=== PATIENT | male | born 1960 | race Caucasian/White ===

== ENCOUNTER 2018-07-10 11:32 | Observation (INO) | payer OTHER ==
[~2018-07-10] VITALS: Ht 188 cm; Wt 160.1 kg
--- OUTSIDE RECORDS SUMMARY | 2018-07-10 11:34 | XMS REPORT | Summary of Care ---
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, initial encounter (Final) - 10/28/17 Acute kidney failure, unspecified (Final) - Contact with metalworking machines, initial encounter (Final) - Essential (primary) hypertension (Final) - Discharge Disposition: Home or Self Care Attending Physician: Armando Gan DO Admitting Physician: Armando Gan DO Vital Signs 1 2 3 Most recent to oldest [Reference Range]: 187.96 cm (10/18/17 9:19 PM) 187.96 cm (10/18/17 12:00 PM) Height 98 DegF (10/20/17 8:17 AM) 98 DegF (10/20/17 4:17 AM) 98.1 DegF (10/19/17 11:15 PM) Temperature Oral [96.4-99.1 DegF] 142/81 mmHg *HI* (10/20/17 8:17 AM) 145/84 mmHg *HI* (10/20/17 4:17 AM) 146/85 mmHg *HI* (10/19/17 11:15 PM) Blood Pressure [90-140/60-90 mmHg] 18 BRMIN (10/20/17 8:17 AM) 18 BRMIN (10/20/17 4:17 AM) 18 BRMIN (10/19/17 11:15 PM) Respiratory Rate [14-20 BRMIN] 82 bpm (10/20/17 8:17 AM) 85 bpm (10/20/17 4:17 AM) 81 bpm (10/19/17 11:15 PM) Peripheral Pulse Rate [60-100 bpm] 154.545 kg (10/18/17 9:19 PM) 154.545 kg (10/18/17 12:00 PM) Weight 43.74 m2 (10/18/17 9:19 PM) 43.74 m2 (10/18/17 12:00 PM) Body Mass Index Problem List No data available for this section Allergies, Adverse Reactions, Alerts Substance Reaction Severity Status morphine Active Medications acetaminophen (ANES) Route: IVPB, Drug form: INJ, ONCE, Stop date: 10/19/17 11:06:00 RETAIL PHARMACIST Start Date: 10/19/17 Stop Date: 10/19/17 Status: Completed acetaminophen 500 mg oral tablet 1,000 mg=2 tab, PO, Q6H, X 10 day, # 80 tab, 0 Refill(s), [place] [facility] [place] [id number] Start Date: 10/20/17 Stop Date: 10/30/17 Status: Completed acetaminophen-hydrocodone 325 mg-5 mg oral tablet 1 tab, Route: PO, Drug Form: TAB, Dosing Weight 154.545, kg, Q4H, PRN Pain Score 4-6, Start date: 10/18/17 14:44:00 RETAIL PHARMACIST, Duration: 30 day, Stop date: 11/17/17 1 4:43:00 CDT Notes: (Same as: [place] 325/5) Do not exceed 4gm/day of acetaminophen. Start Date: 10/18/17 Stop Date: 10/20/17 Status: Discontinued Ancef 2 gm, 20 mL, Route: IVPB, Drug form: SOLN, [id number], Dosing Weight 154.545, kg, St art date: 10/19/17 22:00:00 RETAIL PHARMACIST, Duration: 1 day, Stop date: 10/20/17 14:00:[address], ABX Indication: Surgical Prophylaxis Notes: (Same as Ancef) Start Date: 10/19/17 Stop Date: 10/20/17 Status: Completed Ancef + sterile water 30 mL 3 gm, Route: IVPB, Q8H, Dosing Weight 154.545, kg, Start date: 10/19/17 0:00:00 RETAIL PHARMACIST, Duration: 3 day, Stop date: 10/21/17 16:00:00 RETAIL PHARMACIST, ABX Indication: Open Wou nd Prophylaxis Notes: (Same As: Lisa Dumas) MEDICATION WASTE Product Size: 1000 mgP roduct Wasted: ___ mg Start Date: 10/19/17 Stop Date: 10/19/17 Status: Discontinued ANES fentaNYL 50 microgram, 1 mL, Route: IVP, Drug form: INJ, Q5Min, Dosing Weight 154.545, kg , PRN Pain Score 7-10, Priority: Routine, Start date: 10/19/17 12:31:00 RETAIL PHARMACIST, Dur ation: 2 doses or times, Stop date: 10/20/17 0:00:00 RETAIL PHARMACIST Notes: (Same as: Sublimaze) Preservative free. Start Date: 10/19/17 Stop Date: 10/19/17 Status: Discontinued ANES flumazenil 0.2 mg, 2 mL, Route: IVP, Drug form: INJ, PRN, Dosing Weight 154.545, kg, PRN Be nzodiazepine Reversal, Initial dose, Start date: 10/19/17 12:31:00 RETAIL PHARMACIST, Stop krista e: 10/20/17 0:00:00 RETAIL PHARMACIST Notes: (Same as: Romazicon) Start Date: 10/19/17 Stop Date: 10/19/17 Status: Discontinued ANES naloxone 0.4 mg, 1 mL, Route: IVP, Drug form: INJ, Q2MIN, Dosing Weight 154.545, kg, PRN Narcotic Reversal, Start date: 10/19/17 12:31:00 RETAIL PHARMACIST, Duration: 8 doses or times , Stop date: 10/20/17 0:00:00 RETAIL PHARMACIST Notes: Same as Narcan Start Date: 10/19/17 Stop Date: 10/19/17 Status: Discontinued ANES ondansetron 4 mg, 2 mL, Route: IVP, Drug form: INJ, ONCE, Dosing Weight 154.545, kg, PRN Isaías sea & Vomiting, Start date: 10/19/17 12:31:00 RETAIL PHARMACIST Notes: (Same as: Zofran) MEDICATION WASTE Product Size: 4 mgProduct Was heike: ___ mg Start Date: 10/19/17 Stop Date: 10/19/17 Status: Discontinued ANES oxyCODONE 10 mg, 2 tab, Route: PO, Drug form: TAB, Q4H, Dosing Weight 154.545, kg, PRN Jelani n Score 7-10, Start date: 10/19/17 12:31:00 RETAIL PHARMACIST, Stop date: 10/20/17 0:00:00 RETAIL PHARMACIST Notes: (Same as: Roxicodone) Start Date: 10/19/17 Stop Date: 10/19/17 Status: Discontinued ANES oxyCODONE 5 mg, 1 tab, Route: PO, Drug form: TAB, Q4H, Dosing Weight 154.545, kg, PRN Pain Score 4-6, Start date: 10/19/17 12:31:00 RETAIL PHARMACIST, Stop date: 10/20/17 0:00:00 RETAIL PHARMACIST Notes: (Same as: Roxicodone) Start Date: 10/19/17 Stop Date: 10/19/17 Status: Discontinued Aspirin Enteric Coated 81 mg oral delayed release tablet 81 mg=1 tab, PO, Daily Start Date: 10/19/17 Status: Ordered Benadryl 25 mg oral tablet 50 mg=2 tab, PO, Daily Start Date: 10/19/17 Status: Ordered ceFAZolin (ANES) Route: IV, Drug form: INJ, ONCE, Stop date: 10/19/17 10:56:00 RETAIL PHARMACIST Start Date: 10/19/17 Stop Date: 10/19/17 Status: Completed Dilaudid 0.5 mg, 0.25 mL, Route: IVP, Drug form: INJ, Q3H, Dosing Weight 154.545, kg, PRN Pain Score 7-10, Start date: 10/18/17 20:53:00 RETAIL PHARMACIST, Duration: 30 day, Stop date: 11/17/17 20:52:00 CDT Notes: Same as Dilaudid Start Date: 10/18/17 Stop Date: 10/20/17 Status: Discontinued Dilaudid 1 mg, Route: IVP, ONCE, Dosing Weight 154.545, kg, Priority: STAT, Start date: 0 10/18/17 14:59:00 RETAIL PHARMACIST, Stop date: 10/18/17 14:59:00 RETAIL PHARMACIST Start Date: 10/18/17 Stop Date: 10/18/17 Status: Completed docusate 100 mg, 1 cap, Route: PO, Drug form: CAP, BID, Dosing Weight 154.545, kg, Start date: 10/18/17 17:00:00 RETAIL PHARMACIST, Duration: 30 day, Stop date: 11/17/17 9:00:00 CDT Notes: (Same as: Colace) (Do Not Crush) Start Date: 10/18/17 Stop Date: 10/20/17 Status: Discontinued enoxaparin 40 mg, 0.4 mL, Route: SUB-Q, Drug form: INJ, [id number], Dosing Weight 154.545, kg , Consider for obese patients, Start date: 10/18/17 15:00:00 RETAIL PHARMACIST, Stop date: 3:00:00 CDT Notes: (Same as: Lovenox) Start Date: 10/18/17 Stop Date: 10/20/17 Status: Discontinued ePHEDrine (ANES) Route: IV, Drug form: INJ, ONCE, Stop date: 10/19/17 12:02:00 RETAIL PHARMACIST Start Date: 10/19/17 Stop Date: 10/19/17 Status: Completed famotidine (ANES) Route: IV, Drug form: INJ, ONCE, Stop date: 10/19/17 10:56:00 RETAIL PHARMACIST Start Date: 10/19/17 Stop Date: 10/19/17 Status: Completed fentaNYL 25 microgram, 0.5 mL, Route: IVP, Drug form: INJ, ONCE, Dosing Weight 154.545, k g, Priority: STAT, Start date: 10/18/17 14:10:00 RETAIL PHARMACIST, Stop date: 10/18/17 14:10: 00 RETAIL PHARMACIST Notes: (Same as: Sublimaze) Preservative free. Start Date: 10/18/17 Stop Date: 10/18/17 Status: Completed fentaNYL 25 microgram, Route: IVP, ONCE, Dosing Weight 154.545, kg, Priority: STAT, Start date: 10/18/17 12:16:00 RETAIL PHARMACIST, Stop date: 10/18/17 12:16:00 RETAIL PHARMACIST Start Date: 10/18/17 Stop Date: 10/18/17 Status: Completed fentaNYL 25 microgram, 0.5 mL, Route: IVP, Drug form: INJ, ONCE, Dosing Weight 154.545, k g, Priority: STAT, Start date: 10/18/17 12:52:00 RETAIL PHARMACIST, Stop date: 10/18/17 12:52: 00 RETAIL PHARMACIST Notes: (Same as: Sublimaze) Preservative free. Start Date: 10/18/17 Stop Date: 10/18/17 Status: Completed fentaNYL (ANES) Route: IV, Drug form: INJ, ONCE, Stop date: 10/19/17 11:01:00 RETAIL PHARMACIST Start Date: 10/19/17 Stop Date: 10/19/17 Status: Completed gabapentin 300 mg oral capsule 300 mg, 1 cap, Route: PO, Drug form: CAP, TID, Dosing Weight 154.545, kg, Start date: 10/18/17 17:00:00 RETAIL PHARMACIST, Duration: 30 day, Stop date: 11/17/17 13:00:00 CDT Notes: (Same as: Neurontin) Start Date: 10/18/17 Stop Date: 10/20/17 Status: Discontinued gabapentin 300 mg oral capsule 300 mg=1 cap, PO, TID, # 30 cap, 0 Refill(s), Pharmacy: [id number] Start Date: 10/20/17 Stop Date: 10/30/17 Status: Ordered Isolyte S PH 7.4 1,000 mL 1,000 mL, Rate: 100 ml/hr, Infuse over: 10 hr, Route: IV, Dosing Weight 154.545 kg, Total Volume: 1,000, Start date: 10/18/17 14:47:00 RETAIL PHARMACIST, Duration: 30 day, St op date: 11/17/17 14:46:00 CDT, 2.87, m2 Notes: (Same as: Isolyte S PH 7.4) Start Date: 10/18/17 Stop Date: 10/20/17 Status: Discontinued Lactated Ringers Injection IV (ANES) 1000 mL Route: IV, Total Volume: 1,000, Start date: 10/19/17 10:05:00 RETAIL PHARMACIST, Stop date: 11:05:00 RETAIL PHARMACIST Start Date: 10/19/17 Stop Date: 10/19/17 Status: Completed lidocaine (ANES) Route: IV, Drug form: INJ, ONCE, Stop date: 10/19/17 11:11:00 RETAIL PHARMACIST Start Date: 10/19/17 Stop Date: 10/19/17 Status: Completed midazolam (ANES) Route: IV, Drug form: SOLN, ONCE, Stop date: 10/19/17 11:01:00 RETAIL PHARMACIST Start Date: 10/19/17 Stop Date: 10/19/17 Status: Completed Motrin 600 mg, 1 tab, Route: PO, Drug form: TAB, ONCE, Dosing Weight 154.545, kg, Start date: 10/19/17 15:38:00 RETAIL PHARMACIST, Stop date: 10/19/17 15:38:00 RETAIL PHARMACIST Notes: (Same as: Motrin)"Do Not Crush" Take with food. Start Date: 10/19/17 Stop Date: 10/19/17 Status: Completed naproxen 250 mg, 1 tab, Route: PO, Drug form: TAB, ONCE, Dosing Weight 154.545, kg, Start date: 10/19/17 20:27:00 RETAIL PHARMACIST, Stop date: 10/19/17 20:27:00 RETAIL PHARMACIST Notes: (Same as: Naprosyn) Take with food. Start Date: 10/19/17 Stop Date: 10/19/17 Status: Completed ondansetron 4 mg, Route: IVP, Drug form: INJ, ONCE, Dosing Weight 154.545, kg, Priority: STA T, Start date: 10/18/17 12:15:00 RETAIL PHARMACIST, Stop date: 10/18/17 12:15:00 RETAIL PHARMACIST Start Date: 10/18/17 Stop Date: 10/18/17 Status: Completed ondansetron 4 mg, 2 mL, Route: IVP, Drug form: INJ, Q6H, Dosing Weight 154.545, kg, PRN Naus ea & Vomiting, Start date: 10/18/17 14:44:00 RETAIL PHARMACIST, Duration: 30 day, Stop date: 11/17/17 14:43:00 CDT Notes: (Same as: Tarik) MEDICATION WASTE Product Size: 4 mgProduct Was heike: ___ mg Start Date: 10/18/17 Stop Date: 10/20/17 Status: Discontinued ondansetron (ANES) Route: IV, Drug form: INJ, ONCE, Stop date: 10/19/17 10:56:00 RETAIL PHARMACIST Start Date: 10/19/17 Stop Date: 10/19/17 Status: Completed Prilosec 20 mg oral delayed release capsule 20 mg=1 cap, PO, Daily Start Date: 10/19/17 Status: Ordered propofol (ANES) Route: IV, Drug form: INJ, ONCE, Stop date: 10/19/17 11:06:00 RETAIL PHARMACIST Start Date: 10/19/17 Stop Date: 10/19/17 Status: Completed quinapril 20 mg oral tablet TK 1 T PO D Start Date: 10/19/17 Status: Ordered rocuronium (ANES) Route: IV, Drug form: INJ, ONCE, Stop date: 10/19/17 11:01:00 RETAIL PHARMACIST Start Date: 10/19/17 Stop Date: 10/19/17 Status: Completed senna 8.6 mg oral tablet 17.2 mg, 2 tab, Route: PO, Drug Form: TAB, Dosing Weight 154.545, kg, Daily, Sta rt date: 10/19/17 9:00:00 RETAIL PHARMACIST, Duration: 30 day, Stop date: 11/17/17 9:00:00 CDT Notes: (Same as: Senokot) Start Date: 10/19/17 Stop Date: 10/20/17 Status: Discontinued succinylcholine (ANES) Route: IV, Drug form: INJ, ONCE, Stop date: 10/19/17 11:01:00 RETAIL PHARMACIST Start Date: 10/19/17 Stop Date: 10/19/17 Status: Completed tramadol 50 mg oral tablet 50 mg=1 tab, PO, Q6H, PRN Pain, X 10 day, # 40 tab, 0 Refill(s) Start Date: 10/20/17 Stop Date: 10/30/17 Status: Completed Tylenol 1,000 mg, 2 tab, Route: PO, Drug form: TAB, Q6H, Dosing Weight 154.545, kg, Star t date: 10/20/17 12:00:00 RETAIL PHARMACIST, Duration: 30 day, Stop date: 11/19/17 6:00:00 CDT Notes: Max acetaminophen 4000 mg/day (4 gm/day). (Same as: Tylenol Extra Streng th) Start Date: 10/20/17 Stop Date: 10/20/17 Status: Discontinued Results BLOOD BANK RESULTS 1 2 3 Most recent to oldest [Reference Range]: B NEG *Unknown* (10/18/17 12:36 PM) ABO/Rh Negative (10/18/17 12:36 PM) Antibody Scrn ELECTROLYTES 1 2 3 Most recent to oldest [Reference Range]: 139 mEq/L (10/20/17 12:42 AM) 141 mEq/L (10/19/17 4:58 AM) 139 mEq/L (10/18/17 12:36 PM) Sodium Lvl [135-145 mEq/L] 3.9 mEq/L (10/20/17 12:42 AM) 3.8 mEq/L (10/19/17 4:58 AM) 4.1 mEq/L (10/18/17 12:36 PM) Potassium Lvl [3.5-5.1 mEq/L] 104 mEq/L (10/20/17 12:42 AM) 104 mEq/L (10/19/17 4:58 AM) 103 mEq/L (10/18/17 12:36 PM) Chloride Lvl [95-109 mEq/L] 26 mEq/L (10/20/17 12:42 AM) 26 mEq/L (10/19/17 4:58 AM) 25 mEq/L (10/18/17 12:36 PM) CO2 [24-32 mEq/L] 12.9 mEq/L (10/20/17 12:42 AM) 14.8 mEq/L (10/19/17 4:58 AM) 15.1 mEq/L (10/18/17 12:36 PM) AGAP [10.0-20.0 mEq/L] CHEM PANEL 1 2 3 Most recent to oldest [Reference Range]: 1.02 mg/dL (10/20/17 12:42 AM) 0.94 mg/dL 1 (10/19/17 4:58 AM) 1.44 mg/dL *HI* (10/18/17 12:36 PM) Creatinine Lvl [0.50-1.40 mg/dL] 83 mL/min/1.73m2 2 *NA* (10/20/17 12:42 AM) 91 mL/min/1.73m2 3 *NA* (10/19/17 4:58 AM) 55 mL/min/1.73m2 4 *NA* (10/18/17 12:36 PM) eGFR 10 mg/dL (10/20/17 12:42 AM) 16 mg/dL (10/19/17 4:58 AM) 18 mg/dL (10/18/17 12:36 PM) BUN [7-22 mg/dL] 132 mg/dL *HI* (10/20/17 12:42 AM) 108 mg/dL *HI* (10/19/17 4:58 AM) 120 mg/dL *HI* (10/18/17 12:36 PM) Glucose Lvl [70-99 mg/dL] 8.7 mg/dL (10/20/17 12:42 AM) 8.1 mg/dL *LOW* (10/19/17 4:58 AM) 9.0 mg/dL (10/18/17 12:36 PM) Calcium Lvl [8.5-10.5 mg/dL] 1Result Comment: rechecked Creat & Bun 2Result Comment: The eGFR is calculated using the CKD-EPI formula. In most young, healthy individuals the eGFR will be >90 mL/min/1.73m2. The eGFR declines with age. An eGFR of 60-89 may be normal in some populations, particularly the elderly, for whom the CKD-EPI formula has not been extensively validated. Use of the eGFR is not recommended in the following populations: Individuals with unstable creatinine concentrations, including patients and those with serious co-morbid conditions. Patients with extremes in muscle mass or diet. The data above are obtained from the National Kidney Disease Education Program ( NKDEP) which additionally recommends that when the eGFR is used in patients with extremes of body mass index for purposes of drug dosing, the eGFR should be mul tiplied by the estimated BMI. 3Result Comment: The eGFR is calculated using the CKD-EPI formula. In most young, healthy individuals the eGFR will be >90 mL/min/1.73m2. The eGFR declines with age. An eGFR of 60-89 may be normal in some populations, particularly the elderly, for whom the CKD-EPI formula has not been extensively validated. Use of the eGFR is not recommended in the following populations: Individuals with unstable creatinine concentrations, including patients and those with serious co-morbid conditions. Patients with extremes in muscle mass or diet. The data above are obtained from the National Kidney Disease Education Program ( NKDEP) which additionally recommends that when the eGFR is used in patients with extremes of body mass index for purposes of drug dosing, the eGFR should be mul tiplied by the estimated BMI. 4Result Comment: The eGFR is calculated using the CKD-EPI formula. In most young, healthy individuals the eGFR will be >90 mL/min/1.73m2. The eGFR declines with age. An eGFR of 60-89 may be normal in some populations, particularly the elderly, for whom the CKD-EPI formula has not been extensively validated. Use of the eGFR is not recommended in the following populations: Individuals with unstable creatinine concentrations, including patients and those with serious co-morbid conditions. Patients with extremes in muscle mass or diet. The data above are obtained from the National Kidney Disease Education Program ( NKDEP) which additionally recommends that when the eGFR is used in patients with extremes of body mass index for purposes of drug dosing, the eGFR should be mul tiplied by the estimated BMI. HEMATOLOGY 1 2 3 Most recent to oldest [Reference Range]: 11.7 K/CMM *HI* (10/20/17 12:42 AM) 9.0 K/CMM (10/19/17 4:58 AM) 8.3 K/CMM (10/18/17 12:36 PM) WBC [3.7-10.4 K/CMM] 4.64 M/CMM *LOW* (10/20/17 12:42 AM) 4.46 M/CMM *LOW* (10/19/17 4:58 AM) 5.04 M/CMM (10/18/17 12:36 PM) RBC [4.70-6.10 M/CMM] 14.9 g/dL (10/20/17 12:42 AM) 14.6 g/dL (10/19/17 4:58 AM) 16.1 g/dL (10/18/17 12:36 PM) Hgb [14.0-18.0 g/dL] 43.1 % (10/20/17 12:42 AM) 41.5 % *LOW* (10/19/17 4:58 AM) 47.2 % (10/18/17 12:36 PM) Hct [42.0-54.0 %] 92.9 fL (10/20/17 12:42 AM) 93.0 fL (10/19/17 4:58 AM) 93.6 fL (10/18/17 12:36 PM) MCV [80.0-94.0 fL] 32.2 pg *HI* (10/20/17 12:42 AM) 32.7 pg *HI* (10/19/17 4:58 AM) 31.8 pg *HI* (10/18/17 12:36 PM) MCH [27.0-31.0 pg] 34.6 g/dL (10/20/17 12:42 AM) 35.1 g/dL (10/19/17 4:58 AM) 34.0 g/dL (10/18/17 12:36 PM) MCHC [32.0-36.0 g/dL] 13.3 % (10/20/17 12:42 AM) 13.8 % (10/19/17 4:58 AM) 13.7 % (10/18/17 12:36 PM) RDW [11.5-14.5 %] 7.9 fL (10/20/17 12:42 AM) 7.6 fL (10/19/17 4:58 AM) 7.7 fL (10/18/17 12:36 PM) MPV [7.4-10.4 fL] 140 K/CMM (10/20/17 12:42 AM) 143 K/CMM (10/19/17 4:58 AM) 152 K/CMM (10/18/17 12:36 PM) Platelet [133-450 K/CMM] 81.4 % *HI* (10/20/17 12:42 AM) 62.4 % (10/19/17 4:58 AM) 60.3 % (10/18/17 12:36 PM) Segs [45.0-75.0 %] 13.1 % *LOW* (10/20/17 12:42 AM) 28.0 % (10/19/17 4:58 AM) 29.3 % (10/18/17 12:36 PM) Lymphocytes [20.0-40.0 %] 4.4 % (10/20/17 12:42 AM) 5.6 % (10/19/17 4:58 AM) 5.4 % (10/18/17 12:36 PM) Monocytes [2.0-12.0 %] 0.4 % (10/20/17 12:42 AM) 3.6 % (10/19/17 4:58 AM) 3.9 % (10/18/17 12:36 PM) Eosinophils [0.0-4.0 %] 0.7 % (10/20/17 12:42 AM) 0.4 % (10/19/17 4:58 AM) 1.1 % *HI* (10/18/17 12:36 PM) Basophils [0.0-1.0 %] 9.5 K/CMM *HI* (10/20/17 12:42 AM) 5.6 K/CMM (10/19/17 4:58 AM) 5.0 K/CMM (10/18/17 12:36 PM) Segs-Bands # [1.5-8.1 K/CMM] 1.5 K/CMM (10/20/17 12:42 AM) 2.5 K/CMM (10/19/17 4:58 AM) 2.4 K/CMM (10/18/17 12:36 PM) Lymphocytes # [1.0-5.5 K/CMM] 0.5 K/CMM (10/20/17 12:42 AM) 0.5 K/CMM (10/19/17 4:58 AM) 0.4 K/CMM (10/18/17 12:36 PM) Monocytes # [0.0-0.8 K/CMM] 0.3 K/CMM (10/19/17 4:58 AM) 0.3 K/CMM (10/18/17 12:36 PM) Eosinophils # [0.0-0.5 K/CMM] 0.1 K/CMM (10/20/17 12:42 AM) 0.1 K/CMM (10/18/17 12:36 PM) Basophils # [0.0-0.2 K/CMM] 12.6 seconds (10/18/17 12:36 PM) PT [12.0-14.7 seconds] 0.94 (10/18/17 12:36 PM) INR [0.85-1.17] 31.6 seconds (10/18/17 12:36 PM) PTT [22.9-35.8 seconds] Immunizations Given and Recorded Vaccine Date Status Refusal Reason diphtheria/pertussis, acel/tetanus adult 10/18/17 Given Procedures Procedure Date Related Diagnosis Body Site Status Anterior chamber of eye and lens operations Completed Bilateral replacement of knee joints Completed Procedure on back Completed Social History Social History Type Response Substance Abuse Use: Current. Type: Marijuana. Alcohol Current, Type Liquor. Frequency: 1-2 times per week. Smoking Status Never smoker; Exposure to Tobacco Smoke None; Cigarette Smoking Last 365 Days No; Reg Smoking Cessation Counseling No entered on: 10/18/17 Assessment and Plan Extracted from: Title: ORS Progress Note Author: DimitryReilly Bhavana Date: 10/19/17 S: Patient is doing ok. Says his pain is much better controlled. O: VitalsTmp(F)Tmp(C)[id number] 10/19 13:30 [id number]------ 10/19 13:[id number]------ 10/19 13:00 [id number]------ 10/19 12:45 [id number]------ 10/19 12:[id number] 6.0L/m--- 24 Hr Tmax: 98.6F (37.00c) at 10/19 12:3024 Hr Tmin: 97.1F (36.17c) at 10/19 13:15 36 Hr Tmax: 98.6F (37.00c) at 10/19 12:3036 Hr Tmin: 97.1F (36.17c) at 10/19 13:15 Vital Signs are the last 5 in the past 48 hours. Weights are the last 5 in 60 days, plus initial. RUE: Dressings c/d/i moving all fingers grossly BCR<3s all fingers A/P 56 yo M s/p powerdrill injury to R IF sustaining a traumatic amputation POD0 I&D, revision amputation R IF - NWB RUE - keep dressings clean, dry and intact until follow up - ancef 24 hrs post op - Follow up with Dr. Leigh 2 weeks post operatively - Patient clear for discharge POD #1 if doing well and pain controlled. - Please page [phone] with any questions. - surgery scheduled for 3:00pm today Sridhar Moraes Extracted from: Title: History and Physical Author: Josh Noble MD Date: 10/18/17 56-year-old with a past medical history of hypertension presenting today because of traumatic finger amputation. 1.Pre-op exam - RCRI is 0. Pt low risk for low risk surgery. No further kristi-operative work-up needed from medicine standpoint. Can proceed to surgery. Risks/benefits d/w pt and family at bedside. - Will hold ACEi kristi-op. 2.Traumatic metacarpophalangeal joint amputation of finger - MMP, BR - Plan for OR tomorrow. Abx per ORS. Ordered: Admit/Condition, 10/18/17 14:44:00 RETAIL PHARMACIST, Status: Inpatient, Acute, Location: [address] [place], Expected LOS: 2 Midnights, Armando Gan DO, Admit MD Review/Approve Yes 3.PUJA (acute kidney injury) - IVFs, repeat BMP in AM. lovenox home Extracted from: Title: Ortho Hand Consult Author: Donny Patel Date: 10/18/17 10/18/2017 13:20 ORS Trauma Consult History and Physical Reason for Consult: Right hand 2nd digit traumatic amputation Source of Consult: ED Consulting Physician: Dr Cierra Ortiz Orthopa[facility] Attending: Dr Whitley CC: i was using an industrial drill and the katlin got caught and pulled the r index figner off. HPI: The pt is a 56 Yo male who using an industrial drill earlier today. the katlin got caught when he started the drill. the katlin was connected to his R hand with a cord. The pulled tight and then traumatically pulled off his R index finger. pt was able to collect the finger and put it on ice and bring it with him to the ED visit. PMH: HTN, GERD PSH: bilat TKR, cataracts, Medications: see MAR Allergies: Allergies: morphine Review of Systems: Gen: Denies fever/chills/night sweats. HEENT: Denies vision change, sore throat, ulcers in mouth, epistaxis CV: Denies CP, Palpitations Resp: Denies SOB, wheezing, cough GI: Denies Abd pain, N/V/D/Constipation. Denies incontinence. : Denies urinary retention, urgency, burning, discharge. Back/Spine: Denies pain. Neuro: Denies numbness, tingling, headaches, weakness in extremities. Integumentary: Denies open wounds, rashes, chavis. Endocrine: Denies recent weight changes, heat/cold insensitivity. Psych: Denies depression, anxiety, labile mood, suicidal/homicidal ideation. Musculoskeletal: Denies all but HPI. All other systems negative except HPI. 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 Family History: Vitals: VitalsTmp(F)[id number] 10/18 12:[id number]--- 24 Hr Tmax: 98.2F (36.78c) at 10/18 12:00Vital Signs are the last 5 in the past 48 hours. Labs: [facility]* AGAP: 15.1 mEq/L (10/18/17) Basophils: 1.1 % High (10/18/17) Basophils #: 0.1 K/CMM (10/18/17) BUN: 18 mg/dL (10/18/17) Calcium Lvl: 9 mg/dL (10/18/17) Chloride Lvl: 103 mEq/L (10/18/17) CO2: 25 mEq/L (10/18/17) Creatinine Lvl: 1.44 mg/dL High (10/18/17) eGFR: 55 mL/min/1.73m2 (10/18/17) Eosinophils: 3.9 % (10/18/17) Eosinophils #: 0.3 K/CMM (10/18/17) Glucose Lvl: 120 mg/dL High (10/18/17) Hct: 47.2 % (10/18/17) Hgb: 16.1 g/dL (10/18/17) INR: 0.94 (10/18/17) Lymphocytes: 29.3 % (10/18/17) Lymphocytes #: 2.4 K/CMM (10/18/17) MCH: 31.8 pg High (10/18/17) MCHC: 34 g/dL (10/18/17) MCV: 93.6 fL (10/18/17) Monocytes: 5.4 % (10/18/17) Monocytes #: 0.4 K/CMM (10/18/17) MPV: 7.7 fL (10/18/17) Platelet: 152 K/CMM (10/18/17) Potassium Lvl: 4.1 mEq/L (10/18/17) PT: 12.6 seconds (10/18/17) PTT: 31.6 seconds (10/18/17) RBC: 5.04 M/CMM (10/18/17) RDW: 13.7 % (10/18/17) Segs: 60.3 % (10/18/17) Segs-Bands #: 5 K/CMM (10/18/17) Sodium Lvl: 139 mEq/L (10/18/17) WBC: 8.3 K/CMM (10/18/17) Exam: Gen: NAD but worried about finger Pelvis: NT to stress, no open wounds. Back/Spine: NTTP Extremity Neuro: SILT in BUE C5-T2; and SILT in BLE L1-S2 RUE: Inspection: Dressing on c/d/i.removed,2nd digit examined, exposed PIP, not bleeding, tear in the palmar surface, Sensation: sensation intact to light touch m/r/u n Motor: can move the stump, intact AIN/PIN/Ulnar in hand; 5/5 Wrist flex/ext; Elbow flex/ext; Shoulder ABd,Flex Vascular: 2+ radial pulse palpated, BCR all fingers <2 sec. no cap refill in the LUE: Inspection: no crepitis no deformity Sensation: sensation intact to light touch m/r/u n Motor: intact AIN/PIN/Ulnar in hand; 5/5 Wrist flex/ext; Elbow flex/ext; Shoulder ABd,Flex Vascular: 2+ radial pulse palpated, BCR all fingers <2 sec. RLE: Inspection: no crepitis no deformity Sensation: SILT DP, SP, Tib, Oscar, Saph Motor: Wiggles all toes, 5/5 EHL/FHL, TA, GS, Quad, Ham, IP Vascular: 2+ DP/PT, all toes BCR <2 sec LLE: Inspection: no crepitis no deformity Sensation: SILT DP, SP, Tib, Oscar, Saph Motor: Wiggles all toes, 5/5 EHL/FHL, TA, GS, Quad, Ham, IP Vascular: 2+ DP/PT, all toes BCR <2 sec Imaging: Imaging Studies (last 36 hours) Hand 3 views DX 10/18/2017 12:41 Impression: Traumatic amputation of index finger through the proximal interphalangeal joint with associated soft tissue defect. UT SECTION: ER Finger 3 views DX 10/18/2017 12:41 Impression: Traumatic amputation of index finger through the proximal interphalangeal joint with associated soft tissue defect. UT SECTION: ER Wrist complete DX 10/18/2017 12:41 Impression: Traumatic amputation of index finger through the proximal interphalangeal joint with associated soft tissue defect. UT SECTION: ER A/P: 56 Yo male, s/p traumatic amputation of the second digit at the PIP joint. - Weight bearing status: NWB R UE - Antibiotics: tetanus and antibiotics given - Addendum -to OR in AM with Hand team. by Jorge, -wound exploration possible revision amp of the index finger with Dr Leigh. Donny Quintanilla -cont antibiotics PA on - NPO at Md. 10/24/2017 19:29
--- OUTSIDE RECORDS SUMMARY | 2018-07-10 11:34 | XMS REPORT | Continuity of Care Document ---
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, initial encounter 10/29/2017 01/26/2018 [facility] FINGER AMPUTATION Active 10/18/2017 [facility] TRAUMATIC METACARPOPHALANGEAL JOINT AMPU Active 10/18/2017 [facility] Acute kidney failure, unspecified 01/26/2018 [facility] Contact with metalworking machines, initial encounter 01/26/2018 [facility] Essential hypertension 01/26/2018 [facility] COMPLETE TRAUMATIC MCP AMPUTATION OF UNS Active [facility] Medications Medication Details Route Status Patient Instructions Ordering Provider Order Date Source Tylenol 1,000 mg, 2 tab, Route: PO, Drug form: TAB, Q6H, Dosing Weight 154.545, kg, Start date: 10/20/17 12:00:00 POWER WASHER, Duration: 30 day, Stop date: 11/19/17 6:00:00 CDTNotes: Max acetaminophen 4000 mg/day (4 gm/day). (Same as: Tylenol Extra Strength) Inactive 10/20/2017 [facility] acetaminophen 500 mg oral tablet 1,000 mg=2 tab, PO, Q6H, X 10 day, # 80 tab, 0 Refill(s), Pharmacy: [facility] [id number] No Longer Active 10/20/2017 [facility] gabapentin 300 MG Oral Capsule 300 mg=1 cap, PO, TID, # 30 cap, 0 Refill(s), Pharmacy: [facility] [id number] Active 10/20/2017 [facility] tramadol hydrochloride 50 MG Oral Tablet 50 mg=1 tab, PO, Q6H, PRN Pain, X 10 day, # 40 tab, 0 Refill(s) No Longer Active 10/20/2017 [facility] Ancef 2 gm, 20 mL, Route: IVPB, Drug form: SOLN, [id number], Dosing Weight 154.545, kg, Start date: 10/19/17 22:00:00 POWER WASHER, Duration: 1 day, Stop date: 10/20/17 14:00:00 POWER WASHER, ABX Indication: Surgical ProphylaxisNotes: (Same as Ancef) No Longer Active 10/20/2017 [facility] Naproxen 250 mg, 1 tab, Route: PO, Drug form: TAB, ONCE, Dosing Weight 154.545, kg, Start date: 10/19/17 20:27:00 POWER WASHER, Stop date: 10/19/17 20:27:00 CSTNotes: (Same as: Naprosyn) Take with food. Inactive 10/20/2017 [facility] Motrin 600 mg, 1 tab, Route: PO, Drug form: TAB, ONCE, Dosing Weight 154.545, kg, Start date: 10/19/17 15:38:00 POWER WASHER, Stop date: 10/19/17 15:38:00 CSTNotes: (Same as: Motrin) "Do Not Crush" Take with food. Inactive 10/19/2017 [facility] quinapril 20 mg oral tablet TK 1 T PO D Active 10/19/2017 [facility] Aspirin Enteric Coated 81 mg oral delayed release tablet 81 mg=1 tab, PO, Daily Active 10/19/2017 [facility] Omeprazole 20 MG Enteric Coated Capsule [Prilosec] 20 mg=1 cap, PO, Daily Active 10/19/2017 [facility] Diphenhydramine Hydrochloride 25 MG Oral Tablet [Benadryl] 50 mg=2 tab, PO, Daily Active 10/19/2017 [facility] Ondansetron 4 mg, 2 mL, Route: IVP, Drug form: INJ, ONCE, Dosing Weight 154.545, kg, PRN Nausea & Vomiting, Start date: 10/19/17 12:31:00 CSTNotes: (Same as: Zofran) MEDICATION WASTE Product Size: 4 mg Product Wasted: ___ mg Inactive 10/19/2017 [facility] Naloxone 0.4 mg, 1 mL, Route: IVP, Drug form: INJ, Q2MIN, Dosing Weight 154.545, kg, PRN Narcotic Reversal, Start date: 10/19/17 12:31:00 POWER WASHER, Duration: 8 doses or times, Stop date: 10/20/17 0:00:00 CSTNotes: Same as Narcan Inactive 10/19/2017 [facility] Flumazenil 0.2 mg, 2 mL, Route: IVP, Drug form: INJ, PRN, Dosing Weight 154.545, kg, PRN Benzodiazepine Reversal, Initial dose, Start date: 10/19/17 12:31:00 POWER WASHER, Stop date: 10/20/17 0:00:00 CSTNotes: (Same as: Romazicon) Inactive 10/19/2017 [facility] Fentanyl 50 microgram, 1 mL, Route: IVP, Drug form: INJ, Q5Min, Dosing Weight 154.545, kg, PRN Pain Score 7-10, Priority: Routine, Start date: 10/19/17 12:31:00 POWER WASHER, Duration: 2 doses or times, Stop date: 10/20/17 0:00:00 CSTNotes: (Same as: Sublimaze) Preservative free. Inactive 10/19/2017 [facility] Oxycodone 10 mg, 2 tab, Route: PO, Drug form: TAB, Q4H, Dosing Weight 154.545, kg, PRN Pain Score 7-10, Start date: 10/19/17 12:31:00 POWER WASHER, Stop date: 10/20/17 0:00:00 CSTNotes: (Same as: Roxicodone) Inactive 10/19/2017 [facility] ePHEDrine (ANES) Route: IV, Drug form: INJ, ONCE, Stop date: 10/19/17 12:02:00 POWER WASHER Inactive 10/19/2017 [facility] lidocaine (ANES) Route: IV, Drug form: INJ, ONCE, Stop date: 10/19/17 11:11:00 POWER WASHER Inactive 10/19/2017 [facility] propofol (ANES) Route: IV, Drug form: INJ, ONCE, Stop date: 10/19/17 11:06:00 POWER WASHER Inactive 10/19/2017 [facility] acetaminophen (ANES) Route: IVPB, Drug form: INJ, ONCE, Stop date: 10/19/17 11:06:00 POWER WASHER Inactive 10/19/2017 [facility] rocuronium (ANES) Route: IV, Drug form: INJ, ONCE, Stop date: 10/19/17 11:01:00 POWER WASHER Inactive 10/19/2017 [facility] succinylcholine (ANES) Route: IV, Drug form: INJ, ONCE, Stop date: 10/19/17 11:01:00 POWER WASHER Inactive 10/19/2017 [facility] fentaNYL (ANES) Route: IV, Drug form: INJ, ONCE, Stop date: 10/19/17 11:01:00 POWER WASHER Inactive 10/19/2017 [facility] midazolam (ANES) Route: IV, Drug form: SOLN, ONCE, Stop date: 10/19/17 11:01:00 POWER WASHER Inactive 10/19/2017 [facility] ceFAZolin (ANES) Route: IV, Drug form: INJ, ONCE, Stop date: 10/19/17 10:56:00 POWER WASHER Inactive 10/19/2017 [facility] famotidine (ANES) Route: IV, Drug form: INJ, ONCE, Stop date: 10/19/17 10:56:00 POWER WASHER Inactive 10/19/2017 [facility] ondansetron (ANES) Route: IV, Drug form: INJ, ONCE, Stop date: 10/19/17 10:56:00 POWER WASHER Inactive 10/19/2017 [facility] Lactated Ringers Injection IV (ANES) 1000 mL Route: IV, Total Volume: 1,000, Start date: 10/19/17 10:05:00 POWER WASHER, Stop date: 10/19/17 11:05:00 POWER WASHER Inactive 10/19/2017 [facility] sennosides, CARE HOME 8.6 MG Oral Tablet 17.2 mg, 2 tab, Route: PO, Drug Form: TAB, Dosing Weight 154.545, kg, Daily, Start date: 10/19/17 9:00:00 POWER WASHER, Duration: 30 day, Stop date: 11/17/17 9:00:00 CDTNotes: (Same as: Senokot) No Longer Active 10/19/2017 [facility] Ancef + sterile water 30 mL 3 gm, Route: IVPB, Q8H, Dosing Weight 154.545, kg, Start date: 10/19/17 0:00:00 POWER WASHER, Duration: 3 day, Stop date: 10/21/17 16:00:00 POWER WASHER, ABX Indication: Open Wound ProphylaxisNotes: (Same As: Ancef, Kefzol) MEDICATION WASTE Product Size: 1000 mg Product Wasted: ___ mg Inactive 10/19/2017 [facility] Dilaudid 0.5 mg, 0.25 mL, Route: IVP, Drug form: INJ, Q3H, Dosing Weight 154.545, kg, PRN Pain Score 7-10, Start date: 10/18/17 20:53:00 POWER WASHER, Duration: 30 day, Stop date: 11/17/17 20:52:00 CDTNotes: Same as Dilaudid No Longer Active 10/19/2017 [facility] gabapentin 300 MG Oral Capsule 300 mg, 1 cap, Route: PO, Drug form: CAP, TID, Dosing Weight 154.545, kg, Start date: 10/18/17 17:00:00 POWER WASHER, Duration: 30 day, Stop date: 11/17/17 13:00:00 CDTNotes: (Same as: Neurontin) No Longer Active 10/18/2017 [facility] Docusate 100 mg, 1 cap, Route: PO, Drug form: CAP, BID, Dosing Weight 154.545, kg, Start date: 10/18/17 17:00:00 POWER WASHER, Duration: 30 day, Stop date: 11/17/17 9:00:00 CDTNotes: (Same as: Colace) (Do Not Crush) No Longer Active 10/18/2017 [facility] Enoxaparin 40 mg, 0.4 mL, Route: SUB-Q, Drug form: INJ, [id number], Dosing Weight 154.545, kg, Consider for obese patients, Start date: 10/18/17 15:00:00 POWER WASHER, Stop date: 11/17/17 3:00:00 CDTNotes: (Same as: Lovenox) No Longer Active 10/18/2017 [facility] Dilaudid 1 mg, Route: IVP, ONCE, Dosing Weight 154.545, kg, Priority: STAT, Start date: 10/18/17 14:59:00 POWER WASHER, Stop date: 10/18/17 14:59:00 POWER WASHER Inactive 10/18/2017 [facility] Isolyte S PH 7.4 1,000 mL 1,000 mL, Rate: 100 ml/hr, Infuse over: 10 hr, Route: IV, Dosing Weight 154.545 kg, Total Volume: 1,000, Start date: 10/18/17 14:47:00 POWER WASHER, Duration: 30 day, Stop date: 11/17/17 14:46:00 CDT, 2.87, [id number]: (Same as: Isolyte S PH 7.4) No Longer Active 10/18/2017 [facility] Acetaminophen 325 MG / Hydrocodone Bitartrate 5 MG Oral Tablet 1 tab, Route: PO, Drug Form: TAB, Dosing Weight 154.545, kg, Q4H, PRN Pain Score 4-6, Start date: 10/18/17 14:44:00 POWER WASHER, Duration: 30 day, Stop date: 11/17/17 14:43:00 CDTNotes: (Same as: Lecanto 325/5) Do not exceed 4gm/day of acetaminophen. No Longer Active 10/18/2017 [facility] Ondansetron 4 mg, 2 mL, Route: IVP, Drug form: INJ, Q6H, Dosing Weight 154.545, kg, PRN Nausea & Vomiting, Start date: 10/18/17 14:44:00 POWER WASHER, Duration: 30 day, Stop date: 11/17/17 14:43:00 CDTNotes: (Same as: Zofran) MEDICATION WASTE Product Size: 4 mg Product Wasted: ___ mg No Longer Active 10/18/2017 [facility] Fentanyl 25 microgram, 0.5 mL, Route: IVP, Drug form: INJ, ONCE, Dosing Weight 154.545, kg, Priority: STAT, Start date: 10/18/17 14:10:00 POWER WASHER, Stop date: 10/18/17 14:10:00 CSTNotes: (Same as: Sublimaze) Preservative free. Inactive 10/18/2017 [facility] Fentanyl 25 microgram, 0.5 mL, Route: IVP, Drug form: INJ, ONCE, Dosing Weight 154.545, kg, Priority: STAT, Start date: 10/18/17 12:52:00 POWER WASHER, Stop date: 10/18/17 12:52:00 CSTNotes: (Same as: Sublimaze) Preservative free. Inactive 10/18/2017 [facility] Fentanyl 25 microgram, Route: IVP, ONCE, Dosing Weight 154.545, kg, Priority: STAT, Start date: 10/18/17 12:16:00 POWER WASHER, Stop date: 10/18/17 12:16:00 POWER WASHER Inactive 10/18/2017 [facility] Ondansetron 4 mg, Route: IVP, Drug form: INJ, ONCE, Dosing Weight 154.545, kg, Priority: STAT, Start date: 10/18/17 12:15:00 POWER WASHER, Stop date: 10/18/17 12:15:00 POWER WASHER Inactive 10/18/2017 [facility] Allergies, Adverse Reactions, Alerts Substance Category Reaction Severity Reaction type Status Date Reported Comments Source morphine Assertion Drug allergy Active [facility] Immunizations Immunization Date Given Site Status Last Updated Comments Source diphtheria/pertussis, acel/tetanus adult 10/18/2017 [facility] Order Name Results Value Reference Range Date Interpretation Comments Source ELECTROLYTES AGAP 12.9 meq/L 10.0 - 20.0 10/20/2017 [facility] ELECTROLYTES eGFR 83 mL/min/1.73m2 10/20/2017 Result Comment: The eGFR is calculated using the [...] from the National Kidney Disease Education Program (NKDEP) which additionally recommends that when the eGFR is used in patients with extremes of body mass index for purposes of drug dosing, the eGFR should be multiplied by the estimated BMI. [facility] ELECTROLYTES Creatinine Lvl 1.02 mg/dL 0.50 - 1.40 10/20/2017 [facility] ELECTROLYTES Sodium Lvl 139 meq/L 135 - 145 10/20/2017 [facility] ELECTROLYTES BUN 10 mg/dL 7 - 22 10/20/2017 [facility] ELECTROLYTES Calcium Lvl 8.7 mg/dL 8.5 - 10.5 10/20/2017 [facility] ELECTROLYTES Chloride Lvl 104 meq/L 95 - 109 10/20/2017 [facility] ELECTROLYTES Potassium Lvl 3.9 meq/L 3.5 - 5.1 10/20/2017 [facility] ELECTROLYTES CO2 26 meq/L 24 - 32 10/20/2017 [facility] ELECTROLYTES Glucose Lvl 132 mg/dL 70 - 99 10/20/2017 [facility] HEMATOLOGY Monocytes # 0.5 K/CMM 0.0 - 0.8 10/20/2017 [facility] HEMATOLOGY Basophils # 0.1 K/CMM 0.0 - 0.2 10/20/2017 [facility] HEMATOLOGY Segs-Bands # 9.5 K/CMM 1.5 - 8.1 10/20/2017 [facility] HEMATOLOGY Lymphocytes # 1.5 K/CMM 1.0 - 5.5 10/20/2017 [facility] HEMATOLOGY Basophils 0.7 % 0.0 - 1.0 10/20/2017 [facility] HEMATOLOGY Lymphocytes 13.1 % 20.0 - 40.0 10/20/2017 [facility] HEMATOLOGY Monocytes 4.4 % 2.0 - 12.0 10/20/2017 [facility] HEMATOLOGY Eosinophils 0.4 % 0.0 - 4.0 10/20/2017 [facility] HEMATOLOGY Segs 81.4 % 45.0 - 75.0 10/20/2017 [facility] HEMATOLOGY WBC 11.7 K/CMM 3.7 - 10.4 10/20/2017 [facility] HEMATOLOGY RBC 4.64 M/CMM 4.70 - 6.10 10/20/2017 [facility] HEMATOLOGY Hgb 14.9 g/dL 14.0 - 18.0 10/20/2017 [facility] HEMATOLOGY Hct 43.1 % 42.0 - 54.0 10/20/2017 [facility] HEMATOLOGY MCH 32.2 pg 27.0 - 31.0 10/20/2017 [facility] HEMATOLOGY MCV 92.9 fL 80.0 - 94.0 10/20/2017 [facility] HEMATOLOGY MCHC 34.6 g/dL 32.0 - 36.0 10/20/2017 [facility] HEMATOLOGY RDW 13.3 % 11.5 - 14.5 10/20/2017 [facility] HEMATOLOGY Platelet 140 K/CMM 133 - 450 10/20/2017 [facility] HEMATOLOGY MPV 7.9 fL 7.4 - 10.4 10/20/2017 [facility] CHEM PANEL eGFR 91 mL/min/1.73m2 10/19/2017 Result Comment: The eGFR is calculated using the [...] from the National Kidney Disease Education Program (NKDEP) which additionally recommends that when the eGFR is used in patients with extremes of body mass index for purposes of drug dosing, the eGFR should be multiplied by the estimated BMI. [facility] CHEM PANEL Glucose Lvl 108 mg/dL 70 - 99 10/19/2017 [facility] CHEM PANEL BUN 16 mg/dL 7 - 22 10/19/2017 [facility] CHEM PANEL AGAP 14.8 meq/L 10.0 - 20.0 10/19/2017 [facility] CHEM PANEL Creatinine Lvl 0.94 mg/dL 0.50 - 1.40 10/19/2017 Result Comment: rechecked Creat & Bun [facility] CHEM PANEL Sodium Lvl 141 meq/L 135 - 145 10/19/2017 [facility] CHEM PANEL Chloride Lvl 104 meq/L 95 - 109 10/19/2017 [facility] CHEM PANEL Potassium Lvl 3.8 meq/L 3.5 - 5.1 10/19/2017 [facility] CHEM PANEL CO2 26 meq/L 24 - 32 10/19/2017 [facility] CHEM PANEL Calcium Lvl 8.1 mg/dL 8.5 - 10.5 10/19/2017 [facility] HEMATOLOGY Platelet 143 K/CMM 133 - 450 10/19/2017 [facility] HEMATOLOGY MPV 7.6 fL 7.4 - 10.4 10/19/2017 [facility] HEMATOLOGY MCH 32.7 pg 27.0 - 31.0 10/19/2017 [facility] HEMATOLOGY MCHC 35.1 g/dL 32.0 - 36.0 10/19/2017 [facility] HEMATOLOGY RDW 13.8 % 11.5 - 14.5 10/19/2017 [facility] HEMATOLOGY WBC 9.0 K/CMM 3.7 - 10.4 10/19/2017 [facility] HEMATOLOGY RBC 4.46 M/CMM 4.70 - 6.10 10/19/2017 [facility] HEMATOLOGY MCV 93.0 fL 80.0 - 94.0 10/19/2017 [facility] HEMATOLOGY Hgb 14.6 g/dL 14.0 - 18.0 10/19/2017 [facility] HEMATOLOGY Hct 41.5 % 42.0 - 54.0 10/19/2017 [facility] HEMATOLOGY Monocytes # 0.5 K/CMM 0.0 - 0.8 10/19/2017 [facility] HEMATOLOGY Segs-Bands # 5.6 K/CMM 1.5 - 8.1 10/19/2017 [facility] HEMATOLOGY Lymphocytes # 2.5 K/CMM 1.0 - 5.5 10/19/2017 [facility] HEMATOLOGY Eosinophils 3.6 % 0.0 - 4.0 10/19/2017 [facility] HEMATOLOGY Basophils 0.4 % 0.0 - 1.0 10/19/2017 [facility] HEMATOLOGY Lymphocytes 28.0 % 20.0 - 40.0 10/19/2017 [facility] HEMATOLOGY Monocytes 5.6 % 2.0 - 12.0 10/19/2017 [facility] HEMATOLOGY Eosinophils # 0.3 K/CMM 0.0 - 0.5 10/19/2017 [facility] HEMATOLOGY Segs 62.4 % 45.0 - 75.0 10/19/2017 [facility] BLOOD BANK RESULTS Antibody Scrn Negative (10/18/17 12:36 PM) 10/18/2017 [facility] BLOOD BANK RESULTS ABO/Rh B NEG 10/18/2017 [facility] ELECTROLYTES AGAP 15.1 meq/L 10.0 - 20.0 10/18/2017 [facility] ELECTROLYTES eGFR 55 mL/min/1.73m2 10/18/2017 Result Comment: The eGFR is calculated using the [...] from the National Kidney Disease Education Program (NKDEP) which additionally recommends that when the eGFR is used in patients with extremes of body mass index for purposes of drug dosing, the eGFR should be multiplied by the estimated BMI. [facility] ELECTROLYTES Glucose Lvl 120 mg/dL 70 - 99 10/18/2017 [facility] ELECTROLYTES Chloride Lvl 103 meq/L 95 - 109 10/18/2017 [facility] ELECTROLYTES CO2 25 meq/L 24 - 32 10/18/2017 [facility] ELECTROLYTES Creatinine Lvl 1.44 mg/dL 0.50 - 1.40 10/18/2017 [facility] ELECTROLYTES Calcium Lvl 9.0 mg/dL 8.5 - 10.5 10/18/2017 [facility] ELECTROLYTES BUN 18 mg/dL 7 - 22 10/18/2017 [facility] ELECTROLYTES Sodium Lvl 139 meq/L 135 - 145 10/18/2017 [facility] ELECTROLYTES Potassium Lvl 4.1 meq/L 3.5 - 5.1 10/18/2017 [facility] HEMATOLOGY PTT 31.6 s 22.9 - 35.8 10/18/2017 [facility] HEMATOLOGY INR 0.94 0.85 - 1.17 10/18/2017 [facility] HEMATOLOGY PT 12.6 s 12.0 - 14.7 10/18/2017 [facility] HEMATOLOGY WBC 8.3 K/CMM 3.7 - 10.4 10/18/2017 [facility] HEMATOLOGY Hgb 16.1 g/dL 14.0 - 18.0 10/18/2017 [facility] HEMATOLOGY MCH 31.8 pg 27.0 - 31.0 10/18/2017 [facility] HEMATOLOGY RBC 5.04 M/CMM 4.70 - 6.10 10/18/2017 [facility] HEMATOLOGY MCV 93.6 fL 80.0 - 94.0 10/18/2017 [facility] HEMATOLOGY Hct 47.2 % 42.0 - 54.0 10/18/2017 [facility] HEMATOLOGY RDW 13.7 % 11.5 - 14.5 10/18/2017 [facility] HEMATOLOGY MCHC 34.0 g/dL 32.0 - 36.0 10/18/2017 [facility] HEMATOLOGY MPV 7.7 fL 7.4 - 10.4 10/18/2017 [facility] HEMATOLOGY Platelet 152 K/CMM 133 - 450 10/18/2017 [facility] HEMATOLOGY Segs 60.3 % 45.0 - 75.0 10/18/2017 [facility] HEMATOLOGY Lymphocytes 29.3 % 20.0 - 40.0 10/18/2017 [facility] HEMATOLOGY Basophils 1.1 % 0.0 - 1.0 10/18/2017 [facility] HEMATOLOGY Segs-Bands # 5.0 K/CMM 1.5 - 8.1 10/18/2017 [facility] HEMATOLOGY Eosinophils 3.9 % 0.0 - 4.0 10/18/2017 [facility] HEMATOLOGY Monocytes 5.4 % 2.0 - 12.0 10/18/2017 [facility] HEMATOLOGY Basophils # 0.1 K/CMM 0.0 - 0.2 10/18/2017 [facility] HEMATOLOGY Eosinophils # 0.3 K/CMM 0.0 - 0.5 10/18/2017 [facility] HEMATOLOGY Lymphocytes # 2.4 K/CMM 1.0 - 5.5 10/18/2017 [facility] HEMATOLOGY Monocytes # 0.4 K/CMM 0.0 - 0.8 10/18/2017 [facility] Wrist complete DX Wrist complete DX EXAM: XR RIGHT FINGER 3 VIEWS EXAM: XR RIGHT HAND 3 VIEWS EXAM: XR RIGHT WRIST 3 VIEWS DATE: 10/18/2017 12:13 PM POWER WASHER INDICATION: - R. 2nd finger amputation COMPARISON: None. TECHNIQUE: A single PA view of the hand, oblique and lateral views of the index finger. 3 views of the hand, 3 views of the wrist FINDINGS: Index finger: There is traumatic amputation of the index finger through the proximal interphalangeal joint with associated soft tissue defect. The distal end of the index finger proximal phalanx is exposed through the skin defect. No definite retained radiopaque foreign bodies. No definite fracture visualized. Hand: Rest of the bones of the hand are intact. Wrist: No acute fracture or malalignment is identified. Soft tissues: No soft tissue abnormality is identified. IMPRESSION: Traumatic amputation of index finger through the proximal interphalangeal joint with associated soft tissue defect. [place] SECTION: ER 10/18/2017 - - This report was dictated by a Doctor Chiropractic/Fellow. I have personally reviewed the images as well as the Resident's interpretation and agree with the findings. Read by: Klever Ro MD Resident: Klever Ro MD Dictated Date/time: 10/18/17 12:41 Electronically Signed by: Kumar Guaman MD 10/18/17 13:11 FINAL REPORT [facility] Finger 3 views DX Finger 3 views DX EXAM: XR RIGHT FINGER 3 VIEWS EXAM: XR RIGHT HAND 3 VIEWS EXAM: XR RIGHT WRIST 3 VIEWS DATE: 10/18/2017 12:13 PM POWER WASHER INDICATION: - R. 2nd finger amputation COMPARISON: None. TECHNIQUE: A single PA view of the hand, oblique and lateral views of the index finger. 3 views of the hand, 3 views of the wrist FINDINGS: Index finger: There is traumatic amputation of the index finger through the proximal interphalangeal joint with associated soft tissue defect. The distal end of the index finger proximal phalanx is exposed through the skin defect. No definite retained radiopaque foreign bodies. No definite fracture visualized. Hand: Rest of the bones of the hand are intact. Wrist: No acute fracture or malalignment is identified. Soft tissues: No soft tissue abnormality is identified. IMPRESSION: Traumatic amputation of index finger through the proximal interphalangeal joint with associated soft tissue defect. [place] SECTION: ER 10/18/2017 - - This report was dictated by a Doctor Chiropractic/Fellow. I have personally reviewed the images as well as the Resident's interpretation and agree with the findings. Read by: Klever Ro MD Resident: Klever Ro MD Dictated Date/time: 10/18/17 12:41 Electronically Signed by: Kumar Guaman MD 10/18/17 13:11 FINAL REPORT [facility] Hand 3 views DX Hand 3 views DX EXAM: XR RIGHT FINGER 3 VIEWS EXAM: XR RIGHT HAND 3 VIEWS EXAM: XR RIGHT WRIST 3 VIEWS DATE: 10/18/2017 12:13 PM POWER WASHER INDICATION: - R. 2nd finger amputation COMPARISON: None. TECHNIQUE: A single PA view of the hand, oblique and lateral views of the index finger. 3 views of the hand, 3 views of the wrist FINDINGS: Index finger: There is traumatic amputation of the index finger through the proximal interphalangeal joint with associated soft tissue defect. The distal end of the index finger proximal phalanx is exposed through the skin defect. No definite retained radiopaque foreign bodies. No definite fracture visualized. Hand: Rest of the bones of the hand are intact. Wrist: No acute fracture or malalignment is identified. Soft tissues: No soft tissue abnormality is identified. IMPRESSION: Traumatic amputation of index finger through the proximal interphalangeal joint with associated soft tissue defect. [place] SECTION: ER 10/18/2017 - - This report was dictated by a Doctor Chiropractic/Fellow. I have personally reviewed the images as well as the Resident's interpretation and agree with the findings. Read by: Klever Ro MD Resident: Klever Ro MD Dictated Date/time: 10/18/17 12:41 Electronically Signed by: Kumar Guaman MD 10/18/17 13:11 FINAL REPORT [facility] Vital Signs Vital Sign Value Date Comments Source Systolic (mm Hg) 142 10/20/2017 [facility] Diastolic (mm Hg) 81 10/20/2017 [facility] Respitory Rate 18 10/20/2017 [facility] Temperature Oral (F) 98 F 10/20/2017 [facility] Heart Rate 82 10/20/2017 [facility] Systolic (mm Hg) 145 10/20/2017 [facility] Diastolic (mm Hg) 84 10/20/2017 [facility] Respitory Rate 18 10/20/2017 [facility] Temperature Oral (F) 98 F 10/20/2017 [facility] Heart Rate 85 10/20/2017 [facility] Temperature Oral (F) 98.1 F 10/20/2017 [facility] Heart Rate 81 10/20/2017 [facility] Respitory Rate 18 10/20/2017 [facility] Systolic (mm Hg) 146 10/20/2017 [facility] Diastolic (mm Hg) 85 10/20/2017 [facility] BMI Calculated 43.74 10/19/2017 [facility] Weight 154.545 10/19/2017 [facility] Height 187.96 cm 10/19/2017 [facility] Weight 154.545 10/18/2017 [facility] BMI Calculated 43.74 10/18/2017 [facility] Height 187.96 cm 10/18/2017 [facility] Encounters Location Location Details Encounter Type Encounter Number Reason For Visit Attending Provider ADM Date DC Date Status Source [facility] Inpatient [id number] Armando Gan 10/18/2017 10/20/2017 [facility] Procedures Procedure Code Date Perfomer Comments Source Anterior chamber of eye and lens operations [id number] [facility] Bilateral replacement of knee joints [id number] [facility] Procedure on back [id number] [facility]
--- OUTSIDE RECORDS SUMMARY | 2018-07-10 11:34 | XMS REPORT ---
Author [facility] Address Unknown Phone Unavailable Care Team Providers Care Windows Software Developer Name Role Phone BRITNEYMARILUZ Arvind FITCH Unavailable Unavailable Problems This patient has no known problems. Allergies, Adverse Reactions, Alerts This patient has no known allergies or adverse reactions. Medications This patient has no known medications. Results Test Description Test Time Test Comments Text Results Atomic Results Result Comments RIBS UNILAT W/CXR [place] [address] Patient Name: ARABELLA SANCHEZ MR #: [id number] : 1960 Age/Sex: 56/M Req #: [id number] Adm Physician: Ordered by: LEV RESENDEZ PRESETTER OPERATOR Report #: [id number] Location: ER Room/Bed: Procedure: [id number] DX/RIBS UNILAT W/CXR Exam Date: 05/06/17 Exam Time: 1934 REPORT STATUS: Signed Left-sided rib x-ray - 5 views HISTORY: COMPARISON: None available. FINDINGS: Bones: Linear lucency within the posterior left fourth rib better seen on oblique views. Mild deformity of the posterior left 11th rib appears chronic. Osseous alignment is within normal limits. Joints: The joint spaces are well-maintained. Soft tissues: The soft tissues appear unremarkable. Lungs are clear. The cardiac mediastinal silhouette is unremarkable. IMPRESSION: Linear lucency overlying the posterior left fourth rib, better seen on the oblique views, suggestive of nondisplaced fracture. Correlate with local tenderness. Recommend repeat left rib x-ray series in 10 days. Signed by: Dr. Jaciel Leon M.D. on 05/06/2017 8:26 PM Dictated By: JACIEL LEON MD 25 Transcribed By: IBRAHIMA on 05/06/172025 COPY TO: LEV RESENDEZ NP
[2018-07-10] MEDS ORDERED: SODIUM CHLORIDE 0.9% 1000ML 1,000 ML IV STA (11:49)
[2018-07-10] MEDS ORDERED: PANTOPRAZOLE 40 MG 10ML VIAL IV STA (11:49)
[2018-07-10] MEDS ORDERED: ASPIRIN 81 MG CHEW TAB PO ONE (12:00)
[2018-07-10] MEDS ORDERED: METOPROLOL TARTRATE 25 MG TAB PO ONE ×2 (12:00→14:00)
[2018-07-10 12:02] LABS: BASOPHILS # (AUTO) 0.1 (0.0-0.1); BASOPHILS % 0.8 % (0.0-1.0); EOSINOPHILS # (AUTO) 0.3 (0.0-0.4); EOSINOPHILS % 2.4 % (0.0-6.0); HEMATOCRIT 49.7 % (38.2-49.6); HEMOGLOBIN 17.6 g/dL (14.0-18.0); LYMPHOCYTES # (AUTO) 3.6 (1.0-3.2); LYMPHOCYTES % 34.6 % (18.0-39.1); MEAN CORPUSCULAR HGB CONC 35.4 g/dL (31-35); MEAN CORPUSCULAR VOLUME 90.4 fL (81-99); MONOCYTES # (AUTO) 0.6 (0.2-0.8); MONOCYTES % 5.4 % (4.4-11.3); NEUTROPHILS # (AUTO) 5.9 (2.1-6.9); NEUTROPHILS % 56.6 % (38.7-80.0); PLATELET COUNT 236 x10e3/uL (140-360); RED CELL DISTRIBUTION WIDTH 13.5 % (11.7-14.4)
[2018-07-10 12:08] LABS: INR 0.87; PROTHROMBIN TIME 12.6 seconds (11.9-14.5)
[2018-07-10 12:09] LABS: PARTIAL THROMBOPLASTIN TIME 30.5 seconds (23.8-35.5)
[2018-07-10 12:18] LABS: ALBUMIN 4.3 g/dL (3.5-5.0); ALBUMIN/GLOBULIN RATIO 1.5 (0.8-2.0); ANION GAP 19.5 mmol/L (8-16); CALCIUM 9.5 mg/dL (8.4-10.2); CREATININE, SERUM 1.26 mg/dL (0.72-1.25); MAGNESIUM 2.4 MG/DL (1.3-2.1); POTASSIUM 4.5 mmol/L (3.5-5.1)
--- NOTE | 2018-07-10 12:30 | Diagnostic Imaging Report ---
Examination: Single AP view of the chest. COMPARISON: None. INDICATION: Chest pain DISCUSSION: Lines/tubes: None. Lungs: The lungs are well inflated and clear no pneumonia or pulmonary edema. Pleura: No pleural effusion or pneumothorax. Heart and mediastinum: The heart and the mediastinum are unremarkable. Bones and soft tissues: No acute bony abnormalities. IMPRESSION: 1. No acute cardiopulmonary abnormalities. Signed by: Dr. Dejon Skinner M.D. on 07/10/2018 12:26 PM
[2018-07-10 12:40] LABS: CREATINE KINASE MB 4.9 ng/mL (0-5.0); THYROID STIMULATING HORMONE 2.008 uIU/mL (0.350-4.940)
[2018-07-10] MEDS ORDERED: ASPIR 8181 MG (13:05)
[2018-07-10] MEDS ORDERED: QUINAPRIL HCL20 MG PO (13:05)
[2018-07-10] MEDS ORDERED: BENADRYL25 M1 (13:05)
[2018-07-10] MEDS ORDERED: PRILOSEC OTC20 MG (13:05)
[2018-07-10] MEDS ORDERED: FAMOTIDINE 20 MG/2 ML VIAL IV SCH (13:15)
[2018-07-10] MEDS ORDERED: ONDANSETRON HCL INJ 2 MG/ML VIAL IV PRN (13:15)
[2018-07-10] MEDS ORDERED: METOPROLOL TARTRATE 25 MG TAB PO SCH ×2 (13:15→21:00)
[2018-07-10 16:25] VITALS: BP 135/82
[2018-07-10 16:32] VITALS: BP 135/82
[2018-07-10 16:36] VITALS: BP 135/82
[2018-07-10] MEDS ORDERED: RIVAROXABAN 20 MG TABLET PO SCH (17:00)
--- NOTE | 2018-07-10 17:40 | Consultation ---
DATE OF CONSULTATION: July 10, 2018 INDICATION: Atrial fibrillation. HISTORY OF PRESENT ILLNESS: Mr. Grubbs is a 57-year-old gentleman with history of hypertension, morbid obesity, comes in with an hour worth of rapid palpitations. He was found to be in rapid atrial fibrillation with heart rates in excess of 200 beats a minute. He denies any chest pain. He is spontaneously converted to sinus rhythm. He does not have a history of atrial fibrillation, but has felt flutters before. His brother as well as his nephew both has atrial fibrillation. PAST MEDICAL HISTORY: Hypertension. SOCIAL HISTORY: Patient does not smoke or drink. MEDICATIONS: Reviewed. REVIEW OF SYSTEMS: Negative except as dictated in history of present illness. PHYSICAL EXAMINATION VITAL SIGNS: Afebrile. Heart rate 104, blood pressure is 140/83, and O2 sat is 98%. CARDIOVASCULAR: Regular rhythm. No murmurs or gallops. LUNGS: Clear to auscultation bilaterally. ABDOMEN: Soft. EXTREMITIES: 1+ edema. LABS: BNP level is normal. Serum creatinine is 1.26. Cardiac enzymes are negative. TSH is 2.0. EKG and telemetry show sinus rhythm at present. ASSESSMENT 1. Paroxysmal atrial fibrillation. 2. Hypertension. RECOMMENDATIONS: Initiation of anticoagulation with Xarelto 20 mg a day as well as beta-елена 50 mg of metoprolol. We will monitor him on telemetry for the next 24 hours, following which he is stable for discharge if he remains in sinus rhythm with further outpatient followup in the office. I thank Dr. Patterson for this consultation. Job#: [id number] VAS
[2018-07-10 20:00] VITALS: BP 124/64
[2018-07-10] MEDS ORDERED: DIPHENHYDRAMINE HCL 25 MG CAP PO PRN (20:00)
[2018-07-10 20:56] VITALS: BP 124/64
[2018-07-10 22:15] LABS: CREATINE KINASE MB 3.4 ng/mL (0-5.0)
[2018-07-11 00:41] VITALS: BP 110/55
[2018-07-11 04:00] VITALS: BP 124/80
[2018-07-11 05:10] LABS: BASOPHILS # (AUTO) 0.1 (0.0-0.1); BASOPHILS % 0.5 % (0.0-1.0); EOSINOPHILS # (AUTO) 0.3 (0.0-0.4); EOSINOPHILS % 2.9 % (0.0-6.0); HEMOGLOBIN 15.4 g/dL (14.0-18.0); LYMPHOCYTES # (AUTO) 2.4 (1.0-3.2); LYMPHOCYTES % 26.2 % (18.0-39.1); MEAN CORPUSCULAR HEMOGLOBIN 31.8 pg (28-32); MEAN CORPUSCULAR VOLUME 90.9 fL (81-99); MONOCYTES # (AUTO) 0.5 (0.2-0.8); MONOCYTES % 5.6 % (4.4-11.3); NEUTROPHILS % 64.5 % (38.7-80.0); PLATELET COUNT 155 x10e3/uL (140-360); RED BLOOD COUNT 4.84 x10e6/uL (4.3-5.7); RED CELL DISTRIBUTION WIDTH 13.5 % (11.7-14.4)
[2018-07-11 05:30] LABS: ANION GAP 14.7 mmol/L (8-16); BLOOD UREA NITROGEN 19 mg/dL (7-26); BUN/CREATININE RATIO 18 (6-25); CALCIUM 8.6 mg/dL (8.4-10.2); CARBON DIOXIDE 26 mmol/L (22-29); CHLORIDE 105 mmol/L (98-107); CHOL/HDL RATIO 4.2 (3.9-4.7); CHOLESTEROL 179 MD/DL (0-199); CREATININE, SERUM 1.05 mg/dL (0.72-1.25); EST GLOMERULAR FILTRATION RATE > 60 ML/MIN (60-); GLUCOSE 117 mg/dL (74-118); HDL CHOLESTEROL 43 MG/DL (40-60); LDL CHOLESTEROL 111 MG/DL (60-130); POTASSIUM 4.7 mmol/L (3.5-5.1); SODIUM 141 mmol/L (136-145); TRIGLYCERIDES 127 MG/DL (0-149)
[2018-07-11 05:48] LABS: CREATINE KINASE MB 3.3 ng/mL (0-5.0)
[2018-07-11 08:00] VITALS: BP 124/61
[2018-07-11] MEDS ORDERED: ASPIRIN 81 MG ENTERIC COATED PO SCH (09:00)
[2018-07-11] MEDS ORDERED: METOPROLOL SUCCINATE 50 MG TAB XL PO SCH (09:00)
[2018-07-11] MEDS ORDERED: TOPROL XL50 MG PO (10:40)
[2018-07-11] MEDS ORDERED: XARELTO20 MG PO (10:40)
[2018-07-11 11:00] VITALS: BP 141/87
--- NOTE | 2018-07-11 11:28 | Progress Note ---
DATE: July 11, 2018 SUBJECTIVE: Mr. Grubbs denies any complaints. He has had no further palpitations. Telemetry revealed sinus rhythm. OBJECTIVE VITAL SIGNS: Afebrile. Heart rate 64, blood pressure 124/61, O2 sat is 98%. CARDIOVASCULAR: Regular rhythm. S4 gallop. No murmurs. LUNGS: Clear to auscultation bilaterally. ABDOMEN: Soft. TELEMETRY: Shows sinus bradycardia. LABS: Hemoglobin remains stable. Cardiac enzymes are negative. LDL 111. Serum creatinine normal. BNP less than 10. TSH is 2. ASSESSMENT: Paroxysmal atrial fibrillation, currently in sinus rhythm. RECOMMENDATIONS: Beta-елена and Xarelto to continue. Patient is stable for discharge. He will follow up in the office for further cardiac evaluation and treatment. I thank Dr. Patterson for this consultation. Job#: [id number] LAURA
[2018-07-11] MEDS ORDERED: SODIUM CHLORIDE 0.9% 1000ML 1,000 ML ONE (22:50)
== END 2018-07-11 11:31 | disposition home or self-care (01) ==
LOC: ER 11:32 → INTOOBSV 13:08 → ERHOLD 13:08 → IMCU 16:23
PROVIDERS: ADMIT Internal Medicine; ATTEND Internal Medicine
DX: I48.0 Paroxysmal atrial fibrillation (principal); I47.1 Supraventricular tachycardia; R07.9 Chest pain, unspecified; K21.9 Gastro-esophageal reflux disease without esophagitis; M54.9 Dorsalgia, unspecified; Z83.3 Family history of diabetes mellitus; Z82.49 Family history of ischemic heart disease and other diseases of the circulatory system; Z82.3 Family history of stroke; Z88.5 Allergy status to narcotic agent; E66.01 Morbid (severe) obesity due to excess calories; I12.9 Hypertensive chronic kidney disease with stage 1 through stage 4 chronic kidney disease, or unspecified chronic kidney disease; N18.3 Chronic kidney disease, stage 3 (moderate); Z68.42 Body mass index [BMI] 45.0-49.9, adult
CPT/HCPCS: 36415 ×2; 71045; 80048; 80053; 80061; 82550 ×2; 82553 ×2; 83735 ×2; 83880; 84443; 84484 ×2; 85025 ×2; 85379; 85610; 85730; 93005; 93306; 99284; G0378 ×2; J7030

== ENCOUNTER 2022-03-02 12:22 | Emergency (ER) | payer OTHER ==
[~2022-03-02] VITALS: Ht 188 cm; Wt 160.1 kg
[~2022-03-02 12:22] MED LIST: ASPIR 8181 MG; BENADRYL25 M1; PRILOSEC OTC20 MG; QUINAPRIL HCL20 MG PO; TOPROL XL50 MG PO; XARELTO20 MG PO
[2022-03-02] MEDS ORDERED: SODIUM CHLORIDE 0.9% 1000ML 1,000 ML IV STA (12:45)
[2022-03-02] MEDS ORDERED: MECLIZINE HCL 12.5 MG TAB PO ONE (12:45)
[2022-03-02 12:52] LABS: BASOPHILS # (AUTO) 0.1 (0.0-0.1); BASOPHILS % 0.7 % (0.0-1.0); EOSINOPHILS # (AUTO) 0.2 (0.0-0.4); EOSINOPHILS % 2.7 % (0.0-6.0); HEMATOCRIT 48.7 % (38.2-49.6); HEMOGLOBIN 16.9 g/dL (14.0-18.0); LYMPHOCYTES # (AUTO) 2.3 (1.0-3.2); LYMPHOCYTES % 27.3 % (18.0-39.1); MEAN CORPUSCULAR HEMOGLOBIN 32.3 pg (28-32); MEAN CORPUSCULAR HGB CONC 34.7 g/dL (31-35); MEAN CORPUSCULAR VOLUME 93.1 fL (81-99); MONOCYTES # (AUTO) 0.5 (0.2-0.8); MONOCYTES % 6.1 % (4.4-11.3); NEUTROPHILS # (AUTO) 5.3 (2.1-6.9); PLATELET COUNT 197 x10e3/uL (140-360); RED BLOOD COUNT 5.23 x10e6/uL (4.3-5.7); RED CELL DISTRIBUTION WIDTH 13.6 % (11.7-14.4)
[2022-03-02 13:06] LABS: INR 0.88; PROTHROMBIN TIME 12.8 seconds (11.9-14.5)
[2022-03-02 13:07] LABS: PARTIAL THROMBOPLASTIN TIME 30.6 seconds (23.8-35.5)
[2022-03-02 13:17] LABS: ALBUMIN 3.9 g/dL (3.5-5.0); ALBUMIN/GLOBULIN RATIO 1.2 (0.8-2.0); ANION GAP 13.8 mmol/L (8-16); CALCIUM 9.3 mg/dL (8.4-10.2); CREATININE, SERUM 1.08 mg/dL (0.72-1.25); MAGNESIUM 1.6 MG/DL (1.3-2.1); POTASSIUM 3.8 mmol/L (3.5-5.1)
[2022-03-02 13:23] LABS: CREATINE KINASE MB 4.8 ng/mL (0-5.0)
[2022-03-02 14:19] LABS: CLARITY,URINE CLEAR (CLEAR); COLOR,URINE YELLOW (YELLOW); KETONES,URINE NEGATIVE (NEGATIVE); LEUKOCYTE ESTERASE ,URINE NEGATIVE (NEGATIVE); MUCUS,URINE FEW (RARE); NITRITE,URINE NEGATIVE (NEGATIVE); PROTEIN,URINE DIPSTICK NEGATIVE (NEGATIVE); RBC,URINE 0-5 /HPF (0-5); URINE UROBILINOGEN 0.2 mg/dL (0.2 - 1); WBC,URINE (MAN) 0-5 /HPF (0-5)
[2022-03-02 15:58] VITALS: BP 132/99
== END 2022-03-02 15:59 | disposition home or self-care (01) ==
LOC: ER 12:33
DX: R42 Dizziness and giddiness (principal); R53.83 Other fatigue; R50.9 Fever, unspecified; I10 Essential (primary) hypertension; K21.9 Gastro-esophageal reflux disease without esophagitis; M54.9 Dorsalgia, unspecified; G89.29 Other chronic pain; Z20.822 Contact with and (suspected) exposure to COVID-19
CPT/HCPCS: 36415; 70450; 71045; 80053; 81001; 82550; 82553; 83735; 83880; 84484; 85025; 85610; 85730; 87086; 93005; 99284; J7030; J8597; U0002